=== PATIENT | male | born 1960 | race Caucasian/White ===

== ENCOUNTER 2017-04-01 01:47 | Emergency (ER) | payer SELFPAY ==
[~2017-04-01] VITALS: Ht 175.3 cm; Wt 97.9 kg
[~2017-04-01 01:47] MED LIST: ANAPROX DS550 M1 PO; PERCOCET 5/31 TABLET PO
[2017-04-01 03:03] LABS: HEMATOCRIT 39.2 % (38.0-50.0); MCH 30.3 PG (29.0-34.0); MCHC 34.4 G/DL (30.0-36.0); MCV 87.9 FL (86-99); MEAN PLAT.VOLUME 9.9 uM^3 (9.0-12.4); PLATELET COUNT 204 K/uL (156-360); RBC DIS.WIDTH-SD 38.9 % (39-53); RED BLOOD COUNT 4.46 M/uL (4.00-5.50); WHITE BLOOD COUNT 7.2 K/uL (4.1-10.2)
[2017-04-01 03:17] LABS: CHLORIDE 100 mEq/L (99-109); POTASSIUM 3.7 mEq/L (3.7-5.4); SODIUM 129 mEq/L (136-147)
[2017-04-01 03:19] LABS: GLUCOSE 109 mg/dL (70-99)
[2017-04-01 03:20] LABS: ANION GAP 12 MEQ/L (2-14)
[2017-04-01 03:21] LABS: TOTAL BILIRUBIN 0.6 mg/dL (0.0-1.0)
[2017-04-01 03:22] LABS: ALKALINE PHOSPHATASE 73 IU/L (3-129)
[2017-04-01 03:23] LABS: GFR ESTIMATE (CALCULATED) > 59 mL/min/
[2017-04-01 03:24] LABS: UREA NITROGEN (BUN) 19 mg/dL (9-23)
[2017-04-01 03:26] LABS: LIPASE 36 U/L (1.0-51.0)
[2017-04-01 03:33] LABS: TROP-I INTERPRETATION NEGATIVE; TROPONIN-I < 0.01 ng/mL (0.0-0.30)
[2017-04-01 04:07] LABS: SERUM ETHYL ALCOHOL 94 mg/dL
[2017-04-01 04:53] VITALS: BP 134/88
== END 2017-04-01 04:54 | disposition home or self-care (01) ==
LOC: EME 01:47
PROVIDERS: Emergency Medicine
DX: R55 Syncope and collapse (principal); S00.33XA Contusion of nose, initial encounter; E87.1 Hypo-osmolality and hyponatremia; W01.198A Fall on same level from slipping, tripping and stumbling with subsequent striking against other object, initial encounter; Y90.4 Blood alcohol level of 80-99 mg/100 ml; Z72.89 Other problems related to lifestyle
CPT/HCPCS: 70450; 70486; 71020; 72125; 80053; 83690; 84484; 85027; 93005; 99281; 99284; G0480; J7030

== ENCOUNTER 2017-11-17 07:44 | Emergency (ER) | payer SELFPAY ==
[~2017-11-17] VITALS: Ht 177.8 cm; Wt 95.7 kg
[2017-11-17] MEDS ORDERED: TESSALON PERLE100 MG PO (09:37)
[2017-11-17] MEDS ORDERED: VENTOLIN HFA18 GM IH (09:37)
[2017-11-17] MEDS ORDERED: PREDNISONE20 MG PO (09:37)
[2017-11-17 09:47] VITALS: BP 123/94
== END 2017-11-17 09:47 | disposition home or self-care (01) ==
LOC: EME 07:44
DX: J06.9 Acute upper respiratory infection, unspecified (principal); I10 Essential (primary) hypertension; K21.9 Gastro-esophageal reflux disease without esophagitis
CPT/HCPCS: 71046; 99281; 99284; J7512